=== PATIENT | male | born 1970 | race Caucasian/White ===

== ENCOUNTER 2021-01-17 23:56 | Emergency (ER) | payer OTHER ==
[2021-01-18 03:46] LABS: BASOPHIL 0.8 % (0-2); EOSINOPHIL 0.9 % (0-5); HCT 40.7 % (42.0-52.0); HGB 13.7 g/dl (13.2-18.0); LYMPHOCYTE 29.1 % (15-48); MCH 32.5 pg (25.0-31.0); MCHC 33.7 g/dL (32.0-36.0); MCV 96.7 fL (78.0-100.0); MPV 11.5 fL (6.0-9.5); NRBC 0; PLT 215 K/uL (150-400); RBC 4.21 M/uL (4.70-6.00); WBC 9.7 K/uL (4.0-10.5)
[2021-01-18 03:59] LABS: ALBUMIN 4.4 g/dL (3.4-5.0); BILIRUBIN - TOTAL 0.8 mg/dL (0.2-1.0); BUN/CREAT RATIO (CALC) 20.5 RATIO; CREATININE 1.12 mg/dL (0.67-1.17); GLOBULIN (CALCULATION) 3.6 g/dL; POTASSIUM 4.2 mmol/L (3.5-5.1)
[2021-01-18 06:09] LABS: BILIRUBIN NEGATIVE (NEGATIVE); BLOOD NEGATIVE Ery/uL (NEGATIVE); CLARITY CLEAR (CLEAR); COLOR YELLOW (YELLOW); GLUCOSE (U) NORMAL (NORMAL); LEUKOCYTES NEGATIVE Leu/uL (NEGATIVE); NITRITE NEGATIVE (NEGATIVE); PROTEIN 1+ mg/dL (NEGATIVE); SPECIFIC GRAVITY >=1.030 (1.001-1.030); pH 5.5 (5.0-9.0)
[2021-01-18 06:16] LABS: BARBITURATES NEGATIVE (NEGATIVE); ECSTASY (MDMA) POSITIVE (NEGATIVE); MARIJUANA (THC) POSITIVE (NEGATIVE); METHADONE NEGATIVE (NEGATIVE); OPIATES NEGATIVE (NEGATIVE)
[2021-01-18 06:17] LABS: AMPHETAMINES POSITIVE (NEGATIVE); OXYCODONE NEGATIVE (NEGATIVE)
[2021-01-18 06:18] LABS: URINARY WBC RARE
[2021-01-18] MEDS ORDERED: MOBIC7.5 MG PO (06:21)
[2021-01-18] MEDS ORDERED: ZPAK PO (06:21)
== END 2021-01-18 06:31 | disposition home or self-care (01) ==
LOC: FER 23:56
PROVIDERS: Emergency Medicine Emergency Medical Services
DX: R41.82 Altered mental status, unspecified (principal); J18.9 Pneumonia, unspecified organism; R10.12 Left upper quadrant pain; I10 Essential (primary) hypertension; F17.210 Nicotine dependence, cigarettes, uncomplicated; Z88.5 Allergy status to narcotic agent; Z88.6 Allergy status to analgesic agent; Z79.899 Other long term (current) drug therapy
CPT/HCPCS: 36415; 70450; 71250; 80053; 80305; 81001; 85025; 93005; G0480; J1100; J2800; J7030; J7050